=== PATIENT | female | born 1945 | race Caucasian/White ===

== ENCOUNTER 2016-12-05 17:08 | Inpatient (IN) | payer MEDICARE, OTHER ==
[~2016-12-05] VITALS: Ht 160 cm; Wt 87.3 kg
[~2016-12-05 17:08] MED LIST: ACID CONTROL150 MG PO; ALPRAZOLAM0.5 MG PO; B-12500 MC1 SL; CALCIUM + VITA1 EACH PO; CALCIUM/VITD PO; FISH OIL 1,0001 EACH PO; LISINOPRIL-HCT1 EAC2 PO; LO-DOSE ASPIRIN81 MG PO; MACROBID 100 M100 MG PO; MIRALAX17 GM PO; NAPROXEN250 MG PO; NEURONTIN 300300 MG PO; NORCO 10-325 T1 EACH PO; PANTOPRAZOLE SO40 MG PO; PERCOCET 10-321 EACH PO; PRAVASTATIN SOD80 MG PO; ROPINIROLE HCL1 MG PO; VIT B12 SL
[2016-12-05 18:22] LABS: HEMOGLOBIN 11.1 gm/dl (12.3-15.3); RED BLOOD COUNT 4.32 M/UL (4.00-5.10); WHITE BLOOD COUNT 7.6 K/UL (4.5-11.0)
[2016-12-06 05:46] LABS: HEMOGLOBIN 9.7 gm/dl (12.3-15.3); RED BLOOD COUNT 3.81 M/UL (4.00-5.10); WHITE BLOOD COUNT 4.6 K/UL (4.5-11.0)
[2016-12-06] MEDS ORDERED: NEURONTIN 300300 MG PO (14:38)
[2016-12-06] MEDS ORDERED: HYDROCODON-ACE1 EAC6 PO (14:38)
[2016-12-07 06:38] LABS: HEMOGLOBIN 8.9 gm/dl (12.3-15.3); RED BLOOD COUNT 3.53 M/UL (4.00-5.10)
[2016-12-08] MEDS ORDERED: AZITHROMYCIN500 MG PO (13:11)
[2016-12-08] MEDS ORDERED: CEFUROXIME500 MG PO (13:13)
[2016-12-08] MEDS ORDERED: ADULT TUSS100 MG/5 M PO (13:16)
[2016-12-08] MEDS ORDERED: PREDNISONE 20 M20 MG PO (13:17)
== END 2016-12-08 14:45 | disposition home or self-care (01) | DRG 193 ==
LOC: ER1 17:08 → ZEROF 19:16 → M/S 12-06 13:41
PROVIDERS: Emergency Medicine; ADMIT Family Medicine
DX: J18.0 Bronchopneumonia, unspecified organism (principal); J96.01 Acute respiratory failure with hypoxia; N17.9 Acute kidney failure, unspecified; M62.82 Rhabdomyolysis; E87.2 Acidosis; I95.9 Hypotension, unspecified; N18.3 Chronic kidney disease, stage 3 (moderate); D64.9 Anemia, unspecified; E86.0 Dehydration; R10.2 Pelvic and perineal pain; Z88.6 Allergy status to analgesic agent; Z79.891 Long term (current) use of opiate analgesic; Z79.899 Other long term (current) drug therapy; I10 Essential (primary) hypertension; E78.5 Hyperlipidemia, unspecified
CPT/HCPCS: 36415; 36600; 71010; 80053; 80074; 81001; 82550; 82553; 82803; 83605; 83690; 83735; 83874; 84443; 84484; 85025; 85027; 85610; 85730; 87040; 87086; 93005; 94640; 94664; 96361; 96365; 96366; 96367; 96375; 96376; 99285; J0456; J0696; J2920; J2930; J7030; J7050

== ENCOUNTER → 2017-01-02 | Outpatient (CLI) | payer MEDICARE, OTHER ==
[~2017-01-02] MED LIST changes: +ADULT TUSS100 MG/5 M PO; +AZITHROMYCIN500 MG PO; +CEFUROXIME500 MG PO; +HYDROCODON-ACE1 EAC6 PO; +PREDNISONE 20 M20 MG PO
== END ==
LOC: KOH-I 09:52
DX: R10.32 Left lower quadrant pain (principal); M51.36 Other intervertebral disc degeneration, lumbar region
CPT/HCPCS: 73700

== ENCOUNTER → 2021-11-08 | Outpatient (CLI) | payer MEDICARE, OTHER ==
[~2021-11-08] MED LIST changes: +AUGMENTIN 875-1 EACH PO; +BACTRIM DS TAB1 EACH PO; +CALCIUM500 MG PO; +DULOXETINE HCL60 MG PO; +FAMOTIDINE20 MG PO; +FLONASE 0.05% N16 GM; +FOLIC ACID1 MG PO; +GABAPENTIN800 MG PO; +IBUPROFEN800 MG PO; +LEVOFLOXACIN500 MG PO; +LISINOPRIL20 MG PO; +OCUFLOX5 ML EARLF; +OMNICEF 300 MG300 MG PO; +TRAZODONE HCL100 MG PO; +VITAMIN B-12500 MC2 PO; +VITAMIN D325 MCG PO; +ZOFRAN 4 MG TAB4 MG PO
== END ==
LOC: HEART 5 08:27
DX: I10 Essential (primary) hypertension (principal); R06.02 Shortness of breath; I34.0 Nonrheumatic mitral (valve) insufficiency
CPT/HCPCS: 78452; 93306; A9502; J2785

== ENCOUNTER → 2021-12-12 | Outpatient (CLI) | payer MEDICARE, OTHER ==
[~2021-12-12] MED LIST changes: +CYCLOBENZAPRINE10 MG PO; +DIFLUCAN200 MG PO; +ELIQUIS 2.5 MG2.5 MG GT; +ELIQUIS2.5 MG PO; +LAMISIL AT 15 G15 GM TOP; +LASIX20 MG PO; +POTASSIUM CHLO10 ME1 PO
== END ==
LOC: LAB 15:13
PROVIDERS: Anesthesiology
DX: Z01.812 Encounter for preprocedural laboratory examination (principal); Z45.010 Encounter for checking and testing of cardiac pacemaker pulse generator [battery]
CPT/HCPCS: 36415; 80048; 86850; 86900; 86901

== ENCOUNTER → 2021-12-13 | Day surgery (SDC) | payer MEDICARE, OTHER ==
[~2021-12-13] VITALS: Ht 157.5 cm; Wt 97.5 kg
== END | disposition home or self-care (01) ==
LOC: OR 09:31 → EDSTATUS 11:15
DX: M17.12 Unilateral primary osteoarthritis, left knee (principal); Z53.09 Procedure and treatment not carried out because of other contraindication; L08.9 Local infection of the skin and subcutaneous tissue, unspecified; B35.6 Tinea cruris; L03.115 Cellulitis of right lower limb; B96.89 Other specified bacterial agents as the cause of diseases classified elsewhere; I10 Essential (primary) hypertension; E78.5 Hyperlipidemia, unspecified; F41.9 Anxiety disorder, unspecified; Z88.1 Allergy status to other antibiotic agents; Z79.01 Long term (current) use of anticoagulants; Z79.899 Other long term (current) drug therapy
CPT/HCPCS: 82962; J0690; J7120

== ENCOUNTER 2021-12-29 17:10 | Emergency (ER) | payer MEDICARE, OTHER ==
[2021-12-29 20:36] LABS: RED BLOOD COUNT 4.41 M/UL (4.00-5.10); WHITE BLOOD COUNT 7.7 K/UL (4.5-11.0)
[2021-12-29] MEDS ORDERED: CEPHALEXIN500 M1 PO (23:01)
== END 2021-12-29 23:28 | disposition home or self-care (01) ==
LOC: ER1 17:10
PROVIDERS: Physician Assistant
DX: L03.115 Cellulitis of right lower limb (principal); I10 Essential (primary) hypertension
CPT/HCPCS: 80053; 81001; 83605; 85025; 85379; 93971; 99284